=== PATIENT | male | born 1985 | race Caucasian/White ===

== ENCOUNTER 2018-05-26 19:49 | Emergency (ER) | payer BC, SELFPAY ==
[2018-05-26 19:50] VITALS: BP 141/77; PULSE 71; RESP 18; O2SAT 99
[2018-05-26 19:51] VITALS: BP 141/77; PULSE 75; RESP 18; TEMP 36.9; O2SAT 99; BMI 20.5
--- NOTE | 2018-05-26 21:45 | ED.VISSUMM ---
- ER Visit Summary Date of Service: 05/26/18 Chief Complaint: Left wrist laceration History of Present Illness: The patient is a 33 M presents to the emergency department laceration to his left wrist. Patient was working with metal this morning. He states that he suffered a laceration to his wrist. He states he went to work and bandaged it, but toward the end the day was continuing to bleed. His tetanus is up-to-date. He states this is not a self-inflicted injury. He takes no other daily medications. He denies other injury. Physical Examination: Patient has 1.5 cm full-thickness laceration lateral to the radius on the left wrist. There is no active bleeding. Pulses are normal. Sensation is preserved to light touch. Test Results: [] Emergency Department Course and Treatment: Patient's wound was anesthetized. It was irrigated. There was no evidence of deep puncture. There was no evidence of vascular injury. He was closed with simple interrupted suture. The patient tolerated this without issue. He was counseled on wound care. He will be discharged home. Treatment Plan: [] Disposition: Discharge Impression: 1. 1.5 cm left wrist laceration with repair This note was generated with [employer] dictation software. It may contain incorrect words, spelling, and punctuation that were not noted in review of the chart prior to signing ED Disposition - Plan for ED Patient: Chief Complaint: Laceration Instructions: ED Laceration All Referrals: Charu Parsons [NON-STAFF] - 10 Day for suture removal
[2018-05-26 22:12] VITALS: RESP 16
--- NOTE | 2018-05-26 22:13 | NURSING ---
WOUND CLEANED AND DRESSED, PT UNDERSTANDS INSTRUCTIONS.
== END 2018-05-26 22:15 | disposition home or self-care (01) ==
LOC: ED 21:48
PROVIDERS: Emergency Provider Emergency Medicine
DX: S61.512D Laceration without foreign body of left wrist, subsequent encounter (principal); W26.8XXD Contact with other sharp object(s), not elsewhere classified, subsequent encounter; Z72.0 Tobacco use
CPT/HCPCS: 12001; 99283

== ENCOUNTER 2023-12-14 12:15 | Emergency (ER) | payer SELFPAY ==
[2023-12-14 12:16] VITALS: BP 148/107; PULSE 97; RESP 22; TEMP 36.3; O2SAT 99; BMI 24.9
--- NOTE | 2023-12-14 13:06 | ED.VIS.DENTA ---
HPI History of Present Illness Chief Complaint: Dental Detail of Chief Complaint: Dental pain Informant: patient Narrative Narrative: Patient presents to the emergency department with complaint of dental pain and facial swelling that started yesterday. Patient denies fever but has had some chills. He does not have a dentist. Does not have a primary care physician. Patient states he has poor dentition. [facility] Medical History (Updated 12/14/23 @ 13:[address] Adelaida Guerrero, DO) Pain, dental Home Medications clindamycin HCl 300 mg capsule (Cleocin HCl) 300 mg PO Q6H #40 CAPSULES 12/14/23 [Rx Last Taken Unknown] hydrocodone-acetaminophen 5-325mg 5mg-325mg 1 tab PO Q4H PRN PRN Pain 2 days #10 TABLETS 12/14/23 [Rx Last Taken Unknown] Allergy/AdvReac Type Severity Reaction Status Date / Time codeine Allergy Hives Verified 12/14/23 12:15 Social History Smoking Status: Current every day smoker tobacco type: cigarettes ROS ROS ED Review of Systems ROS Unobtainable: other Constitutional Constitutional ED: Reports lethargy; Denies chills, fever(s), sweats or weight loss Eyes Eyes: Denies blurry vision, change in vision or diplopia ENT ENT ED: Reports other Details: Dental pain and facial swelling ; Denies rhinorrhea or sore throat Cardiovascular Cardiovascular: Denies chest pain, orthopnea or racing heartbeat Respiratory/Chest Respiratory/Chest: Denies cough, dyspnea, dyspnea on exertion, orthopnea or sputum Gastrointestinal Gastrointestinal: Denies abdominal pain, diarrhea, nausea or vomiting Genitourinary Genitourinary ED: Denies dysuria, hematuria or urinary frequency Musculoskeletal Musculoskeletal: Denies arthralgias, back pain, myalgias or neck pain Integumentary Denies abscess, Abrasions or rash Neurologic Neurologic: Denies headache(s) or weakness Psychiatric Psychiatric: Denies anxiety, depression or suicidal thoughts Endocrine Endocrinology: Denies polydipsia, polyphagia or polyuria Hematologic/Lymphatic Hematologic/Lymphatic: Denies easy bleeding, easy bruising or lymphadenopathy Allergic/Immunologic Allergic/Immunologic ED: Denies mouth swelling, tongue swelling or urticaria EXAM Physical Exam Const Vital Signs: 12/14/23 12:16 Temperature 97.3 F L Temperature Source Temporal Pulse Rate 97 Respiratory Rate 22 H Blood Pressure 148/107 H Blood Pressure Mean 120 Pulse Ox 99 Oxygen Delivery Method Room Air Positive well nourished and well developed General Appearance ED: well developed and NAD HEENT Reports TM's clear and moist mucous membranes HEENT Narrative: Dentition-patient has some mild fullness to the right upper face. He has very poor dentition with multiple broken and carried teeth. He has some mild fullness over the right upper incisors but no fluctuance on exam. Nothing amenable to I&D. normocephalic and atraumatic; Negative for trauma or tenderness Tympanic Membrane ED: Yes TM's clear Eyes PERRL and EOMs intact bilaterally General Eye ED: Negative for pale conjunctiva or scleral icterus Neck no lymphadenopathy, supple and no JVD General: Negative for tenderness Chest Wall inspection of chest normal and palpation of chest normal Chest: Negative for tenderness Resp normal respiratory effort and clear to auscultation bilaterally Effort and Inspection: Negative for respiratory distress or pain with movement Auscultation: Negative for rhonchi, wheezes or diminished lung sounds Cardio regular rate, regular rhythm, S1 normal heart sound, S2 normal heart sound and no murmurs Peripheral Pulses: pulses 2+ throughout GI normal to inspection, nondistended, normoactive bowel sounds, soft to palpation, non-tender, non-distended and no masses Back/Spine no CVA tenderness and no thoracic nor lumbar tenderness Extremity normal to inspection General Extremety ED: Negative for edema General Extremity: Negative for edema Neuro oriented x3, CN's II-XII intact bilaterally, no sensory deficits noted and gait normal Sensorium / Orientation: awake, alert, oriented to person, oriented to place and oriented to time Motor Exam: strength 5/5 throughout and strength abnormal Psych mental status grossly normal Skin no rashes or lesions noted and no wounds MDM MDM MDM Narrative Medical decision making narrative: Patient with dental pain and facial swelling. Early onset of suspected early abscess. Patient will be started on clindamycin and given first dose in the emergency department. He will be referred to dentistry for follow-up. Patient will be given a prescription for a few [place] for pain. He is advised to return if increased pain, redness, swelling, fevers, or condition should worsen anyway. Discharge Plan Triage Chief Complaint: Dental ED Provider: Adelaida Guerrero Dx/Rx/DC Orders Clinical Impression: Dental caries, Pain, dental, Abscess, dental Instructions: ED Dental Cavity, ED Tooth Abscess Prescriptions: New clindamycin HCl [Cleocin HCl] 300 mg capsule 300 mg PO Q6H Qty: 40 0RF hydrocodone-acetaminophen [hydrocodone-acetaminophen] 5-325 mg tablet 1 tab PO Q4H PRN PRN (Reason: Pain) 2 Days Qty: 10 0RF Primary Care Provider: Care Physician,No Primary Referrals: Care Physician,No Primary [Primary Care Provider] - Activity Restrictions/Additional Instructions: Follow-up with the dentist at the earliest possible time. Disposition Disposition: Home, Self Care Discharge Date/Time: 12/14/23 13:21
[2023-12-14] MEDS: Clindamycin HCl 150 MG Capsule 300 MG PO (13:20)
== END 2023-12-14 13:21 | disposition home or self-care (01) ==
PROVIDERS: Emergency Provider Emergency Medicine; Referring Provider Emergency Medicine; Visit Provider Emergency Medicine
DX: K08.89 Other specified disorders of teeth and supporting structures (principal); K04.7 Periapical abscess without sinus; K02.9 Dental caries, unspecified; F17.210 Nicotine dependence, cigarettes, uncomplicated
CPT/HCPCS: 99282

== ENCOUNTER 2024-12-05 16:21 | Emergency (ER) | payer SELFPAY ==
[2024-12-05 16:21] VITALS: BP 157/95; PULSE 86; RESP 16; TEMP 36.9; O2SAT 100; BMI 27.0
--- NOTE | 2024-12-05 19:43 | EDS_ITS ---
HPI History of Present Illness Chief Complaint: Dental Detail of Chief Complaint: Dental pain Informant: patient Narrative Narrative: Patient presents with dental pain that has had for about 3 days. He has poor dentition. He does not see a dentist. He denies fevers chills or sweats. Describes of pain in the upper right face with swelling. [facility] Medical History (Updated 12/05/24 @ 19:[address] Adelaida Guerrero, DO) Pain, dental Home Medications ?Medication ?Instructions ?Recorded ?Last Taken ?Type clindamycin HCl 300 mg capsule 300 mg PO Q6H #40 CAPSULES 12/14/23 Unknown Rx (Cleocin HCl) hydrocodone-acetaminophen 5-325mg 1 tab PO Q4H PRN PRN Pain 2 days 12/14/23 Unknown Rx 5mg-325mg #10 TABLETS clindamycin HCl 300 mg capsule 300 mg PO Q6H #40 CAPSULES 12/05/24 Unknown Rx (Cleocin HCl) oxycodone-acetaminophen 5 mg-325 1 tab PO Q6H PRN PRN Pain 3 days 12/05/24 Unknown Rx mg tablet #12 TABLETS Allergy/AdvReac Type Severity Reaction Status Date / Time codeine Allergy Hives Verified 12/05/24 16:23 Social History Smoking Status: Current every day smoker tobacco type: cigarettes ROS ROS ED Review of Systems ROS Unobtainable: other Constitutional Constitutional ED: Reports lethargy; Denies chills, fever(s), sweats or weight loss Eyes Eyes: Denies blurry vision, change in vision or diplopia ENT ENT ED: Reports other Details: Dental pain ; Denies rhinorrhea or sore throat Cardiovascular Cardiovascular: Denies chest pain, orthopnea or racing heartbeat Respiratory/Chest Respiratory/Chest: Denies cough, dyspnea, dyspnea on exertion, orthopnea or sputum Gastrointestinal Gastrointestinal: Denies abdominal pain, diarrhea, nausea or vomiting Genitourinary Genitourinary ED: Denies dysuria, hematuria or urinary frequency Musculoskeletal Musculoskeletal: Denies arthralgias, back pain, myalgias or neck pain Integumentary Denies abscess, Abrasions or rash Neurologic Neurologic: Denies headache(s) or weakness Psychiatric Psychiatric: Denies anxiety, depression or suicidal thoughts Endocrine Endocrinology: Denies polydipsia, polyphagia or polyuria Hematologic/Lymphatic Hematologic/Lymphatic: Denies easy bleeding, easy bruising or lymphadenopathy Allergic/Immunologic Allergic/Immunologic ED: Denies mouth swelling, tongue swelling or urticaria EXAM Physical Exam Const Vital Signs: 12/05/24 16:21 Temperature 98.4 F Temperature Source Oral Pulse Rate 86 Respiratory Rate 16 Blood Pressure 157/95 H Blood Pressure Mean 115 Pulse Ox 100 Oxygen Delivery Method Room Air Positive well nourished and well developed General Appearance ED: well developed and NAD HEENT Reports TM's clear and moist mucous membranes HEENT Narrative: Patient with right upper facial swelling. Patient has very poor dentition where upper teeth are broken and worn down the gumline. He has gingival erythema right upper gingiva with fluid soft tissue swelling with fluctuance consistent with an abscess. No facial cellulitis. normocephalic and atraumatic; Negative for trauma or tenderness Tympanic Membrane ED: Yes TM's clear Eyes PERRL and EOMs intact bilaterally General Eye ED: Negative for pale conjunctiva or scleral icterus Neck no lymphadenopathy, supple and no JVD General: Negative for tenderness Chest Wall inspection of chest normal and palpation of chest normal Chest: Negative for tenderness Resp normal respiratory effort and clear to auscultation bilaterally Effort and Inspection: Negative for respiratory distress or pain with movement Auscultation: Negative for rhonchi, wheezes or diminished lung sounds Cardio regular rate, regular rhythm, S1 normal heart sound, S2 normal heart sound and no murmurs Peripheral Pulses: pulses 2+ throughout GI normal to inspection, nondistended, normoactive bowel sounds, soft to palpation, non-tender, non-distended and no masses Back/Spine no CVA tenderness and no thoracic nor lumbar tenderness Extremity normal to inspection General Extremety ED: Negative for edema General Extremity: Negative for edema Neuro oriented x3, CN's II-XII intact bilaterally, no sensory deficits noted and gait normal Sensorium / Orientation: awake, alert, oriented to person, oriented to place and oriented to time Motor Exam: strength 5/5 throughout and strength abnormal Psych mental status grossly normal Skin no rashes or lesions noted and no wounds MDM MDM MDM Narrative Medical decision making narrative: Patient with right upper dental abscess. He was offered incision and drainage at my recommendation and he is agreeing to proceeding. Using an 18-gauge needle I made a stab incision into the most fluctuant portion of the suspected abscess and large amount of free-flowing purulent debris was expressed. I milked to the area. He was able to irrigate with water and expectorate the purulent debris. He tolerated procedure well. Patient was started on clindamycin. I will give him a prescription for few [place] for pain. Will refer to dentist for follow-up. Advised to return if worsening pain, increased welling, fevers, or condition should worsen anyway. Discharge Plan Triage Chief Complaint: Dental ED Provider: Adelaida Guerrero Dx/Rx/DC Orders Clinical Impression: Dental abscess Instructions: Dental Abscess, ED Dental Pain Prescriptions: New clindamycin HCl [Cleocin HCl] 300 mg capsule 300 mg PO Q6H Qty: 40 0RF oxycodone-acetaminophen 5-325 mg tablet 1 tab PO Q6H PRN PRN (Reason: Pain) 3 Days Qty: 12 0RF No Action clindamycin HCl [Cleocin HCl] 300 mg capsule 300 mg PO Q6H Qty: 40 0RF hydrocodone-acetaminophen [hydrocodone-acetaminophen] 5-325 mg tablet 1 tab PO Q4H PRN PRN (Reason: Pain) 2 Days Qty: 10 0RF Primary Care Provider: Care Physician,No Primary Referrals: Care Physician,No Primary [Primary Care Provider] - Activity Restrictions/Additional Instructions: Follow-up with a dentist at the earliest possible time Print Language: Georgian Disposition Disposition: Home, Self Care
[2024-12-05] MEDS: Clindamycin HCl 150 MG Capsule 300 MG PO (19:52)
== END 2024-12-05 19:56 | disposition home or self-care (01) ==
PROVIDERS: Emergency Provider Emergency Medicine; Visit Provider Emergency Medicine
DX: K04.7 Periapical abscess without sinus (principal); F17.210 Nicotine dependence, cigarettes, uncomplicated